=== PATIENT | female | born 1985 | race Caucasian/White ===

== ENCOUNTER 2017-02-08 23:47 | Emergency (ER) | payer BC ==
[2017-02-08] MEDS ORDERED: BABY ASPIRIN 81 MG CHEW PO ONE (23:54)
[2017-02-08] MEDS ORDERED: MORPHINE SULFATE 2 MG INJ IV ONE (23:54)
[2017-02-08] MEDS ORDERED: Sodium Chloride 0.9% 1000 ML 1,000 ML IV STA (23:54)
[2017-02-09 00:03] VITALS: O2SAT 100
[2017-02-09] MEDS ORDERED: Zofran 4 MG/2 ML VIAL ONE (00:12)
[2017-02-09] MEDS ORDERED: BABY ASPIRIN 81 MG CHEW ONE (00:12)
[2017-02-09] MEDS ORDERED: MORPHINE SULFATE 4 MG INJ ONE (00:12)
[2017-02-09] MEDS ORDERED: Sodium Chloride 0.9% 1000 ML 1,000 ML ONE (00:13)
[2017-02-09 00:16] LABS: Mean Corpuscular Hemoglobin 25.9 pg (26-32); Mean Platelet Volume 10.8 fl (6-9.5); Platelet Count 128 K/mm3 (150-450); Red Blood Count 4.36 M/mm3 (4.1-5.4); Red Cell Distribution Width 13.7 % (11.5-14.0); White Blood Count 2.8 K/mm3 (4.0-10.5)
[2017-02-09] MEDS ORDERED: Zofran 4 MG/2 ML VIAL IV ONE (00:22)
[2017-02-09] MEDS ORDERED: MORPHINE SULFATE 2 MG INJ ONE (00:26)
[2017-02-09 00:39] LABS: ATYPICAL LYMPHS 2 %; BAND 6 % (0.0-2.0); Eosinophil 1 % (0.00-3.0); Platelet Estimate NORMAL (NORMAL); Total Cells Counted 100
[2017-02-09 00:40] LABS: ALBUMIN 4.1 g/dL (3.4-5.0); ALKALINE PHOSPHATASE 74 U/L (46-116); ANION GAP 13.8 MEQ/L (5-15); BLOOD UREA NITROGEN 9 mg/dL (9-20); CHLORIDE 105 mEq/L (98-107); Carbon Dioxide 26.4 mEq/L (21-32); Glucose 77 MG/DL (70-110); Potassium 3.3 mEq/L (3.5-5.1); SGOT/AST 14 U/L (15-37); SGPT/ALT 13 U/L (12-78); SODIUM 142 mEq/L (136-145); TROPONIN < 0.017 ng/ml (0.000-0.056); Total Protein 7.5 gm/dL (6.4-8.2)
[2017-02-09] MEDS ORDERED: K-LYTE 25 MEQ PO ONE (00:44)
--- NOTE | 2017-02-09 00:44 | ERPHSYRPT ---
- History of Present Illness Time Seen by Provider: 02/09/17 00:41 Historian: patient Exam Limitations: no limitations Patient Subjective Stated Complaint: pt state she began having pain in her back and sharp pains in her chest last night. states she has been feeling short af breath also. Triage Nursing Assessment: pt alert and oriented, answers qeustions approp. skin pink warm and dry. respriations nonlabored with lungs cta. pt ambulatory with steady gait noted. pt sinus tach on monitor. Physician History: pt state she began having pain in her back and sharp pains in her chest last night. states she has been feeling short af breath also. Hurts with deep breathing Timing/Duration: yesterday Activities at Onset: none Quality: stabbing Location: substernal Chest Pain Radiation: back Severity of Pain-Max: moderate Severity of Pain-Current: moderate Modifying Factors: Improves With: breathing Associated Symptoms: shortness of breath, hurts to breathe Prior Chest Pain/Cardiac Workup: no prior chest pain Nitro Today/Relief: no nitro taken today Aspirin Treatment Today: no aspirin today Allergies/Adverse Reactions: No Known Drug Allergies Allergy (Verified 02/09/17 00:43) Hx Tetanus, Diphtheria Vaccination/Date Given: No Hx Influenza Vaccination/Date Given: No Hx Pneumococcal Vaccination/Date Given: No Immunizations Up to Date: No - Review of Systems Constitutional: No Fever, No Chills Eyes: No Symptoms Ears, Nose, & Throat: No Symptoms Respiratory: Dyspnea, No Cough Cardiac: Chest Pain, No Edema, No Syncope Abdominal/Gastrointestinal: No Abdominal Pain, No Nausea, No Vomiting, No Diarrhea Genitourinary Symptoms: No Dysuria Musculoskeletal: No Back Pain, No Neck Pain Skin: No Rash Neurological: No Dizziness, No Focal Weakness, No Sensory Changes Psychological: No Symptoms Endocrine: No Symptoms All Other Systems: Reviewed and Negative - Past Medical History Pertinent Past Medical History: No - Past Surgical History Past Surgical History: Yes Gastrointestinal: Hernia Repair Female Surgical History: Section Other Surgical History: GASTRIC BYPASS, - Social History Smoking Status: Never smoker Exposure to second hand smoke: No Drug Use: none Patient Lives Alone: No Significant Family History: no pertinent family hx - Female History Hx Last Menstrual Period: 2 weeks - Nursing Vital Signs Nursing Vital Signs: Initial Vital Signs Temperature 98.6 F 02/08/17 23:52 Pulse Rate 118 H 02/08/17 23:52 Respiratory Rate 20 02/08/17 23:52 Blood Pressure 117/57 02/08/17 23:52 O2 Sat by Pulse Oximetry 100 02/08/17 23:52 Pain Scale Pain Intensity 6 - Physical Exam General Appearance: no apparent distress, alert Eye Exam: PERRL/EOMI, eyes nml inspection Ears, Nose, Throat Exam: normal ENT inspection, moist mucous membranes Neck Exam: normal inspection, non-tender, supple, full range of motion Respiratory Exam: normal breath sounds, lungs clear, No respiratory distress Cardiovascular Exam: regular rate/rhythm, normal heart sounds Gastrointestinal/Abdomen Exam: soft, No tenderness, No mass Back Exam: normal inspection, No CVA tenderness, No vertebral tenderness Extremity Exam: normal inspection, normal range of motion Neurologic Exam: alert, oriented x 3, cooperative, normal mood/affect, sensation nml, No motor deficits Skin Exam: normal color, warm, dry SpO2: 100 Oxygen Delivery: Room Air - Course Nursing assessment & vital signs reviewed: Yes EKG Interpreted by Me: Sinus Rhythm - Radiology Exams Chest X-ray Interpretation: Reviewed by me, Negative, No Pneumothorax Ordered Tests: Active Orders 24 hr Category Date Time Status Applied Behavior Specialist STAT Care 02/08/17 23:54 Active EKG-ER Only STAT Care 02/08/17 23:54 Active CHEST 2 VIEWS (PA AND LAT) Stat Exams 02/08/17 23:55 Taken CBC W DIFF Stat Lab 02/08/17 00:11 Completed CMP Stat Lab 02/08/17 00:11 Completed D-DIMER QUANTITATION Stat Lab 02/08/17 00:11 Completed Manual Differential NC Stat Lab 02/08/17 00:11 Completed TROPONIN Stat Lab 02/08/17 00:11 Completed Medication Summary Generic Name Dose Route Start Last Admin Trade Name Freq PRN Reason Stop Dose Admin Sodium Chloride 1,000 mls @ 999 mls/hr 02/08/17 23:54 02/09/17 00:20 Sodium Chloride 0.9% 1000 Ml IV 02/09/17 00:54 999 mls/hr .Q1H1M STA Administration Discontinued Medications Generic Name Dose Route Start Last Admin Trade Name Freq PRN Reason Stop Dose Admin Aspirin 81 mg 02/08/17 23:54 02/09/17 00:20 Baby Aspirin 81 Mg Chew PO 02/08/17 23:55 81 mg STAT ONE Administration Aspirin Confirm 02/09/17 00:12 Baby Aspirin 81 Mg Chew Administered 02/09/17 00:13 Dose 324 mg .ROUTE .STK-MED ONE Sodium Chloride Confirm 02/09/17 00:13 Sodium Chloride 0.9% 1000 Ml Administered 02/09/17 00:14 Dose 1,000 mls @ ud .ROUTE .STK-MED ONE Morphine Sulfate 2 mg 02/08/17 23:54 02/09/17 00:21 Morphine Sulfate 2 Mg Inj IV 02/08/17 23:55 2 mg STAT ONE Administration Morphine Sulfate Confirm 02/09/17 00:12 Morphine Sulfate 4 Mg Inj Administered 02/09/17 00:13 Dose 4 mg .ROUTE .STK-MED ONE Morphine Sulfate Confirm 02/09/17 00:26 Morphine Sulfate 2 Mg Inj Administered 02/09/17 00:27 Dose 2 mg .ROUTE .STK-MED ONE Ondansetron HCl Confirm 02/09/17 00:12 Zofran 4 Mg/2 Ml Vial Administered 02/09/17 00:13 Dose 4 mg .ROUTE .STK-MED ONE Ondansetron HCl 4 mg 02/09/17 00:22 02/09/17 00:27 Zofran 4 Mg/2 Ml Vial IV 02/09/17 00:23 4 mg STAT ONE Administration Potassium Bicarbonate 50 meq 02/09/17 00:44 K-Lyte 25 Meq PO 02/09/17 00:45 STAT ONE Lab/Rad Data: Laboratory Result Diagrams 02/08/17 00:11 02/08/17 00:11 Laboratory Results 02/08/17 02/08/17 02/08/17 Range/Units 00:11 00:11 00:11 WBC 2.8 L (4.0-10.5) K/mm3 RBC 4.36 (4.1-5.4) M/mm3 Hgb 11.3 L (12.0-16.0) gm/dl Hct 35.3 (35-47) % MCV 81.0 (78-100) fl MCH 25.9 L (26-32) pg MCHC 32.0 (32-36) g/dl RDW 13.7 (11.5-14.0) % Plt Count 128 L (150-450) K/mm3 MPV 10.8 H (6-9.5) fl Segmented Neutrophils 66 (36.0-66.0) % Band Neutrophils 6 H (0.0-2.0) % Lymphocytes (Manual) 20 L (24-44) % Monocytes (Manual) 5 (0.0-12.0) % Eosinophils (Manual) 1 (0.00-3.0) % Differential Comment NORMAL Atypical Lymphocytes 2 % Platelet Estimate NORMAL (NORMAL) D-Dimer 489 (0-500) ng/mL Sodium 142 (136-145) mEq/L Potassium 3.3 L (3.5-5.1) mEq/L Chloride 105 (98-107) mEq/L Carbon Dioxide 26.4 (21-32) mEq/L Anion Gap 13.8 (5-15) MEQ/L BUN 9 (9-20) mg/dL Creatinine 0.79 (0.55-1.30) mg/dl Estimated GFR > 60 ML/MIN Glucose 77 (70-110) MG/DL Calcium 9.1 (8.5-10.1) mg/dL Total Bilirubin 0.20 (0.2-1.0) mg/dL AST 14 L (15-37) U/L ALT 13 (12-78) U/L Alkaline Phosphatase 74 (46-116) U/L Troponin I < 0.017 (0.000-0.056) ng/ml Serum Total Protein 7.5 (6.4-8.2) gm/dL Albumin 4.1 (3.4-5.0) g/dL - Progress Progress: improved Air Movement: good Blood Culture(s) Obtained: No Antibiotics given: No Counseled pt/family regarding: lab results, diagnosis, need for follow-up, rad results - Departure Time of Disposition: 00:47 Departure Disposition: Home Clinical Impression: Pleurisy, Chest pain made worse by breathing Condition: Stable Critical Care Time: Yes Critical Care Time(excluding separately billable procedures): 30-74 minutes Referrals: NOAH SOW FNP [Primary Care Provider] - Instructions: Atypical Chest Pain, Pericarditis, Pleurisy Prescriptions: Indomethacin 25 mg [Indocin 25 MG] 25 mg PO TID #15 capsule
[2017-02-09] MEDS ORDERED: TORAdol 30 mg Injection ONE (00:47)
[2017-02-09] MEDS ORDERED: TORAdol 30 mg Injection IV ONE (00:50)
[2017-02-09] MEDS ORDERED: K-LYTE 25 MEQ ONE (00:50)
[2017-02-09 01:02] VITALS: BP 112/74; PULSE 88
--- NOTE | 2017-02-09 09:16 | XRAY ---
Indication: Chest pain and short of breath. Comparison: April 13, 2008. PA/lateral chest again demonstrates normal heart and lungs. Bony thorax intact with minimal scoliosis.
== END 2017-02-09 01:20 | disposition home or self-care (01) ==
LOC: ED 23:47
DX: R09.1 Pleurisy (principal); R07.1 Chest pain on breathing
CPT/HCPCS: 36415; 71020; 80053; 84484; 85025; 85379; 93005; 93041; 96360; 96374; 96375; 99284; J1885; J2270; J2405; A9270-GY

== ENCOUNTER 2018-01-25 12:25 | Inpatient (IN) | payer BC ==
--- NOTE | 2018-01-25 12:44 | ERPHSYRPT ---
- History of Present Illness Time Seen by Provider: 01/25/18 12:37 Source: patient Exam Limitations: no limitations Physician History: The patient is a 32-year-old female comes in complaining of worsening "dizziness " for 2 days. Yesterday she went to the [facility] and felt a little dizzy yesterday. It was worsened by standing up. She thought maybe she was dehydrated and tried to drink a lot of water. This morning while she was doing someone's hair, she became very lightheaded and felt like she would black out. Her stomach was nauseated, causing her to feel short of breath. She did not vomit. The person for which she was doing hair was a nurse and told her that her heart rate was fast and that she should go to the ER. She has a past medical history of gastric bypass. This morning she felt an urgency to have a bowel movement with some mild cramping. The stool was very black. She no longer has abdominal pain. Her past medical history is significant for genital herpes and gastric bypass. Timing/Duration: yesterday, gradual onset, worse Severity: severe Modifying Factors: Improves With: movement (worse with standing) Associated Symptoms: nausea, abdominal pain (cramping), shortness of breath, No vomiting Allergies/Adverse Reactions: No Known Drug Allergies Allergy (Verified 01/25/18 13:05) Home Medications: Valacyclovir HCl [Valtrex] 500 mg PO DAILY 01/25/18 [History] Hx Tetanus, Diphtheria Vaccination/Date Given: No Hx Influenza Vaccination/Date Given: No Hx Pneumococcal Vaccination/Date Given: No - Review of Systems Constitutional: No Fever, No Chills Eyes: No Symptoms Ears, Nose, & Throat: No Symptoms Respiratory: No Cough, No Dyspnea Cardiac: No Chest Pain, No Edema, No Syncope Abdominal/Gastrointestinal: Nausea, Melena, No Vomiting Genitourinary Symptoms: No Dysuria Musculoskeletal: No Back Pain, No Neck Pain Skin: No Rash Neurological: No Dizziness, No Focal Weakness, No Sensory Changes Psychological: No Symptoms Endocrine: No Symptoms Hematologic/Lymphatic: No Symptoms Immunological/Allergic: No Symptoms All Other Systems: Reviewed and Negative - Past Medical History Pertinent Past Medical History: No - Past Surgical History Past Surgical History: Yes Gastrointestinal: Hernia Repair Female Surgical History: Section Other Surgical History: GASTRIC BYPASS, - Social History Smoking Status: Never smoker Exposure to second hand smoke: No Drug Use: none Patient Lives Alone: No Significant Family History: no pertinent family hx - Nursing Vital Signs Nursing Vital Signs: Initial Vital Signs Temperature 98.6 F 01/25/18 12:27 Pulse Rate 96 H 01/25/18 12:27 Respiratory Rate 16 01/25/18 12:27 Blood Pressure 124/80 01/25/18 12:27 O2 Sat by Pulse Oximetry 99 01/25/18 12:27 Pain Scale Pain Intensity 4 - Physical Exam General Appearance: moderate distress, thin Eye Exam: PERRL/EOMI, eyes nml inspection Ears, Nose, Throat Exam: normal ENT inspection, TMs normal, pharynx normal, moist mucous membranes, No dry mucous membranes Neck Exam: normal inspection, non-tender, supple, full range of motion Respiratory Exam: normal breath sounds, lungs clear, No respiratory distress Cardiovascular Exam: regular rate/rhythm, normal heart sounds, normal peripheral pulses Gastrointestinal/Abdomen Exam: soft, normal bowel sounds, No tenderness, No mass Pelvic Exam: not done Rectal Exam: black stool (per nurse) Back Exam: normal inspection, normal range of motion, No CVA tenderness, No vertebral tenderness Extremity Exam: normal inspection, normal range of motion, pelvis stable Neurologic Exam: alert, oriented x 3, cooperative, normal mood/affect, nml cerebellar function, nml station & gait, sensation nml, No motor deficits Skin Exam: warm, dry, pale, No rash Lymphatic Exam: No adenopathy SpO2 Interpretation: normal Oxygen Delivery: Room Air - Course EKG Interpreted by Me: RATE, Sinus Rhythm, NORMAL AXIS, NORMAL INTERVALS, NORMAL QRS, NORMAL ST-T - CT Exams Abdomen/Pelvis CT Interpretation: Negative (no acute problems), Tele-radiologist Report (per Dr De León.) Ordered Tests: Active Orders 24 hr Category Date Time Status IV Insertion STAT Care 01/25/18 12:49 Active ABDOMEN AND PELVIS W/0 CONTRAS [CT] Stat Exams 01/25/18 13:18 Taken CBC W DIFF Stat Lab 01/25/18 12:52 Completed CMP Stat Lab 01/25/18 12:52 Completed HCG QUALITATIVE,SERUM Stat Lab 01/25/18 12:52 Completed Lactic Acid Stat Lab 01/25/18 13:13 Completed Occult Blood,Stool Other Stat Lab 01/25/18 14:04 Completed UA W/ MICROSCOPIC Stat Lab 01/25/18 14:04 Completed Medication Summary Discontinued Medications Generic Name Dose Route Start Last Admin Trade Name Meaghan PRN Reason Stop Dose Admin Sodium Chloride 1,000 mls @ 999 mls/hr 01/25/18 12:49 01/25/18 14:31 Sodium Chloride 0.9% 1000 Ml IV 01/25/18 13:49 Infused .Q1H1M STA Infusion Sodium Chloride Confirm 01/25/18 12:54 Sodium Chloride 0.9% 1000 Ml Administered 01/25/18 12:55 Dose 1,000 mls @ ud .ROUTE .STK-MED ONE Ondansetron HCl 4 mg 01/25/18 12:49 01/25/18 13:03 Zofran 4 Mg/2 Ml Vial IV 01/25/18 12:50 4 mg STAT ONE Administration Ondansetron HCl Confirm 01/25/18 12:54 Zofran 4 Mg/2 Ml Vial Administered 01/25/18 12:55 Dose 4 mg .ROUTE .STK-MED ONE Pantoprazole Sodium 40 mg 01/25/18 13:12 01/25/18 13:17 Protonix 40 Mg Iv IV 01/25/18 13:13 40 mg STAT ONE Administration Pantoprazole Sodium Confirm 01/25/18 13:15 Protonix 40 Mg Iv Administered 01/25/18 13:16 Dose 40 mg IV .STK-MED ONE Lab/Rad Data: Laboratory Result Diagrams 01/25/18 12:52 01/25/18 12:52 Laboratory Results 01/25/18 01/25/18 01/25/18 Range/Units 14:04 14:04 13:13 WBC (4.0-10.5) K/mm3 RBC (4.1-5.4) M/mm3 Hgb (12.0-16.0) gm/dl Hct (35-47) % MCV (78-100) fl MCH (26-32) pg MCHC (32-36) g/dl RDW (11.5-14.0) % Plt Count (150-450) K/mm3 MPV (6-9.5) fl Gran % (36.0-66.0) % Eos # (Auto) (0-0.5) Absolute Lymphs (auto) (1.0-4.6) Absolute Monos (auto) (0.0-1.3) Lymphocytes % (24.0-44.0) % Monocytes % (0.0-12.0) % Eosinophils % (0.00-5.0) % Basophils % (0.0-0.4) % Absolute Granulocytes (1.4-6.9) Basophils # (0-0.4) Sodium (137-145) mmol/L Potassium (3.5-5.1) mmol/L Chloride (98-107) mmol/L Carbon Dioxide (22-30) mmol/L Anion Gap (5-15) MEQ/L BUN (7-17) mg/dL Creatinine (0.52-1.04) mg/dL Estimated GFR ML/MIN Glucose (74-106) mg/dL Lactic Acid 1.0 (0.4-2.0) Calcium (8.4-10.2) mg/dL Total Bilirubin (0.2-1.3) mg/dL AST (14-36) U/L ALT (0-35) U/L Alkaline Phosphatase (38-126) U/L Serum Total Protein (6.3-8.2) g/dL Albumin (3.5-5.0) g/dL Serum , Qual (Negative) Ur Collection Type VOID Urine Color YELLOW (YELLOW) Urine Appearance CLEAR (CLEAR) Urine pH 5.0 (5-6) Ur Specific [place] 1.015 (1.005-1.025) Urine Protein NEGATIVE (Negative) Urine Ketones NEGATIVE (NEGATIVE) Urine Blood NEGATIVE (0-5) Ludin/ul Urine Nitrite NEGATIVE (NEGATIVE) Urine Bilirubin NEGATIVE (NEGATIVE) Urine Urobilinogen NORMAL (0-1) mg/dL Ur Leukocyte Esterase TRACE (NEGATIVE) Urine Microscopic WBC 0-2 (0-5) /HPF Ur Epithelial Cells RARE (FEW) /HPF Urine Bacteria FEW (NEGATIVE) /HPF Urine Mucus SLIGHT (NEGATIVE) /HPF Urine Culture Reflexed NO (NO) Urine Glucose NEGATIVE (NEGATIVE) mg/dL Stool Occult Blood POSITIVE (Negative) Specimen Received 01/25/18 1400 01/25/18 01/25/18 01/25/18 Range/Units 12:52 12:52 12:52 WBC 6.0 (4.0-10.5) K/mm3 RBC 3.09 L (4.1-5.4) M/mm3 Hgb 7.6 L (12.0-16.0) gm/dl Hct 24.1 L (35-47) % MCV 78.0 (78-100) fl MCH 24.5 L (26-32) pg MCHC 31.5 L (32-36) g/dl RDW 14.5 H (11.5-14.0) % Plt Count 190 (150-450) K/mm3 MPV 11.0 H (6-9.5) fl Gran % 63.6 (36.0-66.0) % Eos # (Auto) 0.08 (0-0.5) Absolute Lymphs (auto) 1.51 (1.0-4.6) Absolute Monos (auto) 0.59 (0.0-1.3) Lymphocytes % 25.0 (24.0-44.0) % Monocytes % 9.8 (0.0-12.0) % Eosinophils % 1.3 (0.00-5.0) % Basophils % 0.3 (0.0-0.4) % Absolute Granulocytes 3.83 (1.4-6.9) Basophils # 0.02 (0-0.4) Sodium 139 (137-145) mmol/L Potassium 4.0 (3.5-5.1) mmol/L Chloride 108 H (98-107) mmol/L Carbon Dioxide 22 (22-30) mmol/L Anion Gap 13.3 (5-15) MEQ/L BUN 26 H (7-17) mg/dL Creatinine 0.69 (0.52-1.04) mg/dL Estimated GFR > 60.0 ML/MIN Glucose 62 L (74-106) mg/dL Lactic Acid (0.4-2.0) Calcium 9.1 (8.4-10.2) mg/dL Total Bilirubin 0.20 (0.2-1.3) mg/dL AST 10 L (14-36) U/L ALT 7 (0-35) U/L Alkaline Phosphatase 43 (38-126) U/L Serum Total Protein 6.6 (6.3-8.2) g/dL Albumin 4.1 (3.5-5.0) g/dL Serum , Qual NEGATIVE (Negative) Ur Collection Type Urine Color (YELLOW) Urine Appearance (CLEAR) Urine pH (5-6) Ur Specific Hondo (1.005-1.025) Urine Protein (Negative) Urine Ketones (NEGATIVE) Urine Blood (0-5) Ludin/ul Urine Nitrite (NEGATIVE) Urine Bilirubin (NEGATIVE) Urine Urobilinogen (0-1) mg/dL Ur Leukocyte Esterase (NEGATIVE) Urine Microscopic WBC (0-5) /HPF Ur Epithelial Cells (FEW) /HPF Urine Bacteria (NEGATIVE) /HPF Urine Mucus (NEGATIVE) /HPF Urine Culture Reflexed (NO) Urine Glucose (NEGATIVE) mg/dL Stool Occult Blood (Negative) Specimen Received - Progress Progress: unchanged Counseled pt/family regarding: lab results, diagnosis, rad results - Departure Time of Disposition: 15:16 Departure Disposition: In-patient Admission (per Dr Aida Hernandez for Dr De Santiago) Clinical Impression: GI bleed Condition: Critical Care Time: No Referrals: VIRGIL DE SANTIAGO MD [Primary Care Provider] -
[2018-01-25] MEDS ORDERED: Zofran 4 MG/2 ML VIAL IV ONE (12:49)
[2018-01-25] MEDS ORDERED: Sodium Chloride 0.9% 1000 ML 1,000 ML IV STA (12:49)
[2018-01-25] MEDS ORDERED: Zofran 4 MG/2 ML VIAL ONE (12:54)
[2018-01-25] MEDS ORDERED: Sodium Chloride 0.9% 1000 ML 1,000 ML ONE (12:54)
[2018-01-25 12:56] LABS: BASOPHIL % 0.3 % (0.0-0.4); Basophil (Absolute #) 0.02 (0-0.4); Eosinophil % 1.3 % (0.00-5.0); Eosinophil (Absolute #) 0.08 (0-0.5); Granulocyte Absolute (ANC) 3.83 (1.4-6.9); Granulocytes % 63.6 % (36.0-66.0); Hematocrit 24.1 % (35-47); Hemoglobin 7.6 gm/dl (12.0-16.0); Lymphocyte (Absolute #) 1.51 (1.0-4.6); Mean Corpuscular Hgb Concent. 31.5 g/dl (32-36); Monocyte (Absolute #) 0.59 (0.0-1.3); Monocytes % 9.8 % (0.0-12.0); Platelet Count 190 K/mm3 (150-450); Red Blood Count 3.09 M/mm3 (4.1-5.4); Red Cell Distribution Width 14.5 % (11.5-14.0)
[2018-01-25 12:58] LABS: Mean Corpuscular Hemoglobin 24.5 pg (26-32)
[2018-01-25 13:11] LABS: ALBUMIN 4.1 g/dL (3.5-5.0); ALKALINE PHOSPHATASE 43 U/L (38-126); ANION GAP 13.3 MEQ/L (5-15); BLOOD UREA NITROGEN 26 mg/dL (7-17); CHLORIDE 108 mmol/L (98-107); Calcium 9.1 mg/dL (8.4-10.2); Carbon Dioxide 22 mmol/L (22-30); Creatinine 1 0.69 mg/dL (0.52-1.04); Glucose 62 mg/dL (74-106); SGOT/AST 10 U/L (14-36); SGPT/ALT 7 U/L (0-35); SODIUM 139 mmol/L (137-145); Total Protein 6.6 g/dL (6.3-8.2)
[2018-01-25] MEDS ORDERED: PROTONIX 40 MG IV IV ONE ×3 (13:12→16:42)
[2018-01-25 14:10] LABS: Appearance CLEAR (CLEAR); Bilirubin NEGATIVE (NEGATIVE); Blood NEGATIVE Ery/ul (0-5); Glucose NEGATIVE (NEGATIVE); Ketones NEGATIVE (NEGATIVE); Leukocyte Esterase TRACE (NEGATIVE); Nitrite NEGATIVE (NEGATIVE); Protein,Urine Dip NEGATIVE (Negative); Specific Gravity 1.015 (1.005-1.025); Urobilinogen NORMAL mg/dL (0-1)
[2018-01-25 15:01] LABS: Bacteria FEW /HPF (NEGATIVE); Epithelial Cells RARE /HPF (FEW); Mucus SLIGHT /HPF (NEGATIVE); WBC 0-2 /HPF (0-5)
[2018-01-25] MEDS ORDERED: Zofran 4 MG/2 ML VIAL IV PRN (15:50)
[2018-01-25] MEDS ORDERED: Sodium Chloride 0.9% 1000 ML 1,000 ML IV SCH (15:50)
[2018-01-25 16:03] LABS: ABO TYPING A; RH TYPING NEGATIVE
[2018-01-25] MEDS ORDERED: THIAMINE 200 MG/2 ML IV ONE (16:42)
--- NOTE | 2018-01-25 16:42 | PCM.HP ---
History of Present Illness - Chief Complaint Chief Complaint: GI Bleed Date: 01/25/18 History of Present Illness: is a 32 year old female. with history of gastric bypass who usually does not take her protonix or her iron because she forgets and 2 nights ago woke up with some cramping diffusely in her abdomen then yesterday began feeling weak and tired and [place] had to sit down. She noticed a darker stool yesterday X1 and then this morning she was feeling tired and around 11 am had a large black bowel movement and felt like she was going to pass out. She has no abdominal pain today and has not had any nsaids. She feels better after the normal saline bolus. - Review of Systems Constitutional: No Fever, No Chills Eyes: No Symptoms Ears, Nose, & Throat: No Symptoms Respiratory: No Cough, No Short Of Breath Cardiac: No Chest Pain, No Edema, No Syncope Abdominal/Gastrointestinal: Nausea, Melena, No Abdominal Pain, No Vomiting, No Diarrhea Genitourinary Symptoms: No Dysuria Musculoskeletal: No Back Pain, No Neck Pain Skin: No Rash Neurological: No Dizziness, No Focal Weakness, No Sensory Changes Psychological: No Symptoms Endocrine: No Symptoms Hematologic/Lymphatic: No Symptoms Immunological/Allergic: No Symptoms Medications & Allergies Home Medications: Home Medication List Valacyclovir HCl [Valtrex] 500 mg PO DAILY 01/25/18 [History Confirmed 01/25/18] Zolpidem Tartrate 10 mg [Ambien 10 MG] 10 mg PO HS 01/25/18 [History Confirmed 01/25/18] Allergies/Adverse Reactions: Allergies Allergy/AdvReac Type Severity Reaction Status Date / Time No Known Drug Allergies Allergy Verified 01/25/18 13:05 - Past Medical History Past Medical History: No - Female History Hx Last Menstrual Period: 12/25/17 Are you now?: No (ABLASION) - Past Surgical History Past Surgical History: Yes GI Surgical History: Hernia Repair Female Surgical History: Section Other Surgical History: GASTRIC BYPASS, - Social History Smoking Status: Never smoker Exposure to second hand smoke: No Alcohol: None Drug Use: none Significant Family History: no pertinent family hx - Physical Exam Vital Signs: Vital Signs - 24 hr Temp Pulse Resp BP Pulse Ox 01/25/18 14:49 95 H 14 106/68 100 07/15/18 13:22 89 20 111/72 100 01/25/18 12:27 98.6 F 96 H 16 124/80 99 General Appearance: no apparent distress, alert Neurologic Exam: alert, oriented x 3, cooperative, normal mood/affect, nml cerebellar function, nml station & gait, sensation nml, No motor deficits Eye Exam: PERRL/EOMI, eyes nml inspection Ears, Nose, Throat Exam: normal ENT inspection, TMs normal, pharynx normal, moist mucous membranes Neck Exam: normal inspection, non-tender, supple, full range of motion Respiratory Exam: normal breath sounds, lungs clear, No respiratory distress Cardiovascular Exam: regular rate/rhythm, normal heart sounds, normal peripheral pulses Gastrointestinal/Abdomen Exam: soft, normal bowel sounds, No tenderness, No mass Back Exam: normal inspection, normal range of motion, No CVA tenderness, No vertebral tenderness Extremity Exam: normal inspection, normal range of motion, pelvis stable Skin Exam: normal color, warm, dry, No rash Lymphatic Exam: No adenopathy Results - Labs Lab/Micro Results: Lab Results-Last 24 Hours 01/25/18 01/25/18 01/25/18 Range/Units 12:52 12:52 12:52 WBC 6.0 (4.0-10.5) K/mm3 RBC 3.09 L (4.1-5.4) M/mm3 Hgb 7.6 L (12.0-16.0) gm/dl Hct 24.1 L (35-47) % MCV 78.0 (78-100) fl MCH 24.5 L (26-32) pg MCHC 31.5 L (32-36) g/dl RDW 14.5 H (11.5-14.0) % Plt Count 190 (150-450) K/mm3 MPV 11.0 H (6-9.5) fl Gran % 63.6 (36.0-66.0) % Eos # (Auto) 0.08 (0-0.5) Absolute Lymphs (auto) 1.51 (1.0-4.6) Absolute Monos (auto) 0.59 (0.0-1.3) Lymphocytes % 25.0 (24.0-44.0) % Monocytes % 9.8 (0.0-12.0) % Eosinophils % 1.3 (0.00-5.0) % Basophils % 0.3 (0.0-0.4) % Absolute Granulocytes 3.83 (1.4-6.9) Basophils # 0.02 (0-0.4) Sodium 139 (137-145) mmol/L Potassium 4.0 (3.5-5.1) mmol/L Chloride 108 H (98-107) mmol/L Carbon Dioxide 22 (22-30) mmol/L Anion Gap 13.3 (5-15) MEQ/L BUN 26 H (7-17) mg/dL Creatinine 0.69 (0.52-1.04) mg/dL Estimated GFR > 60.0 ML/MIN Glucose 62 L (74-106) mg/dL Lactic Acid (0.4-2.0) Calcium 9.1 (8.4-10.2) mg/dL Total Bilirubin 0.20 (0.2-1.3) mg/dL AST 10 L (14-36) U/L ALT 7 (0-35) U/L Alkaline Phosphatase 43 (38-126) U/L Serum Total Protein 6.6 (6.3-8.2) g/dL Albumin 4.1 (3.5-5.0) g/dL Serum , Qual NEGATIVE (Negative) Ur Collection Type Urine Color (YELLOW) Urine Appearance (CLEAR) Urine pH (5-6) Ur Specific [place] (1.005-1.025) Urine Protein (Negative) Urine Ketones (NEGATIVE) Urine Blood (0-5) Ludin/ul Urine Nitrite (NEGATIVE) Urine Bilirubin (NEGATIVE) Urine Urobilinogen (0-1) mg/dL Ur Leukocyte Esterase (NEGATIVE) Urine Microscopic WBC (0-5) /HPF Ur Epithelial Cells (FEW) /HPF Urine Bacteria (NEGATIVE) /HPF Urine Mucus (NEGATIVE) /HPF Urine Culture Reflexed (NO) Urine Glucose (NEGATIVE) mg/dL Stool Occult Blood (Negative) Specimen Received ABO Group Rh Factor Antibody Screen (NEGATIVE) Crossmatch 01/25/18 01/25/18 01/25/18 Range/Units 13:13 14:04 14:04 WBC (4.0-10.5) K/mm3 RBC (4.1-5.4) M/mm3 Hgb (12.0-16.0) gm/dl Hct (35-47) % MCV (78-100) fl MCH (26-32) pg MCHC (32-36) g/dl RDW (11.5-14.0) % Plt Count (150-450) K/mm3 MPV (6-9.5) fl Gran % (36.0-66.0) % Eos # (Auto) (0-0.5) Absolute Lymphs (auto) (1.0-4.6) Absolute Monos (auto) (0.0-1.3) Lymphocytes % (24.0-44.0) % Monocytes % (0.0-12.0) % Eosinophils % (0.00-5.0) % Basophils % (0.0-0.4) % Absolute Granulocytes (1.4-6.9) Basophils # (0-0.4) Sodium (137-145) mmol/L Potassium (3.5-5.1) mmol/L Chloride (98-107) mmol/L Carbon Dioxide (22-30) mmol/L Anion Gap (5-15) MEQ/L BUN (7-17) mg/dL Creatinine (0.52-1.04) mg/dL Estimated GFR ML/MIN Glucose (74-106) mg/dL Lactic Acid 1.0 (0.4-2.0) Calcium (8.4-10.2) mg/dL Total Bilirubin (0.2-1.3) mg/dL AST (14-36) U/L ALT (0-35) U/L Alkaline Phosphatase (38-126) U/L Serum Total Protein (6.3-8.2) g/dL Albumin (3.5-5.0) g/dL Serum , Qual (Negative) Ur Collection Type VOID Urine Color YELLOW (YELLOW) Urine Appearance CLEAR (CLEAR) Urine pH 5.0 (5-6) Ur Specific [place] 1.015 (1.005-1.025) Urine Protein NEGATIVE (Negative) Urine Ketones NEGATIVE (NEGATIVE) Urine Blood NEGATIVE (0-5) Ludin/ul Urine Nitrite NEGATIVE (NEGATIVE) Urine Bilirubin NEGATIVE (NEGATIVE) Urine Urobilinogen NORMAL (0-1) mg/dL Ur Leukocyte Esterase TRACE (NEGATIVE) Urine Microscopic WBC 0-2 (0-5) /HPF Ur Epithelial Cells RARE (FEW) /HPF Urine Bacteria FEW (NEGATIVE) /HPF Urine Mucus SLIGHT (NEGATIVE) /HPF Urine Culture Reflexed NO (NO) Urine Glucose NEGATIVE (NEGATIVE) mg/dL Stool Occult Blood POSITIVE (Negative) Specimen Received 01/25/18 1400 ABO Group Rh Factor Antibody Screen (NEGATIVE) Crossmatch 01/25/18 Range/Units 14:50 WBC (4.0-10.5) K/mm3 RBC (4.1-5.4) M/mm3 Hgb (12.0-16.0) gm/dl Hct (35-47) % MCV (78-100) fl MCH (26-32) pg MCHC (32-36) g/dl RDW (11.5-14.0) % Plt Count (150-450) K/mm3 MPV (6-9.5) fl Gran % (36.0-66.0) % Eos # (Auto) (0-0.5) Absolute Lymphs (auto) (1.0-4.6) Absolute Monos (auto) (0.0-1.3) Lymphocytes % (24.0-44.0) % Monocytes % (0.0-12.0) % Eosinophils % (0.00-5.0) % Basophils % (0.0-0.4) % Absolute Granulocytes (1.4-6.9) Basophils # (0-0.4) Sodium (137-145) mmol/L Potassium (3.5-5.1) mmol/L Chloride (98-107) mmol/L Carbon Dioxide (22-30) mmol/L Anion Gap (5-15) MEQ/L BUN (7-17) mg/dL Creatinine (0.52-1.04) mg/dL Estimated GFR ML/MIN Glucose (74-106) mg/dL Lactic Acid (0.4-2.0) Calcium (8.4-10.2) mg/dL Total Bilirubin (0.2-1.3) mg/dL AST (14-36) U/L ALT (0-35) U/L Alkaline Phosphatase (38-126) U/L Serum Total Protein (6.3-8.2) g/dL Albumin (3.5-5.0) g/dL Serum , Qual (Negative) Ur Collection Type Urine Color (YELLOW) Urine Appearance (CLEAR) Urine pH (5-6) Ur Specific [place] (1.005-1.025) Urine Protein (Negative) Urine Ketones (NEGATIVE) Urine Blood (0-5) Ludin/ul Urine Nitrite (NEGATIVE) Urine Bilirubin (NEGATIVE) Urine Urobilinogen (0-1) mg/dL Ur Leukocyte Esterase (NEGATIVE) Urine Microscopic WBC (0-5) /HPF Ur Epithelial Cells (FEW) /HPF Urine Bacteria (NEGATIVE) /HPF Urine Mucus (NEGATIVE) /HPF Urine Culture Reflexed (NO) Urine Glucose (NEGATIVE) mg/dL Stool Occult Blood (Negative) Specimen Received ABO Group A Rh Factor NEGATIVE Antibody Screen POSITIVE (NEGATIVE) Crossmatch Pending - Radiology Impressions Radiology Exams & Impressions: Radiology Procedures Category Date Time Status ABDOMEN AND PELVIS W/0 CONTRAS [CT] Stat Exams 01/25/18 13:18 Taken Assessment/Plan (1) GI bleed Current Visit: Yes Status: Acute Assessment & Plan: She is on telemetry HR in the 90's received NS bolus type and screen has a positive antibody test that has been sent to [facility] received protonix 80mg iv and now gtt npo currently add carafate She had Darryl en Y with [facility] in [address] Chinchilla contact center rep for Dr. Faustin who recommends transfuse her blood give the protonix start carafate as well and her office will call the patient in the morning to arrange endoscopy with them this week. The patient and her were updated on the plan and in agreement. Code(s): K92.2 - GASTROINTESTINAL HEMORRHAGE, UNSPECIFIED (2) Symptomatic anemia Current Visit: Yes Status: Acute Code(s): D64.9 - ANEMIA, UNSPECIFIED (3) History of gastric bypass Current Visit: Yes Status: Acute Code(s): Z98.84 - BARIATRIC SURGERY STATUS
[2018-01-25] MEDS ORDERED: Sodium Chloride 0.9% 500 ML 500 ML IV ONE (17:26)
[2018-01-25 17:47] LABS: Hematocrit 20.7 % (35-47)
[2018-01-25] MEDS: D5W/0.45NS W/ 20mEq KCl 1000 ML 1,000 ML IV SCH (17:52)
[2018-01-25 17:53] LABS: Hemoglobin 6.5 gm/dl (12.0-16.0)
[2018-01-25] MEDS: PROTONIX 40 MG IV*** 80 MG in Sodium Chloride 0.9% 500 ML 500 ML IV SCH ×2 (17:59→18:15)
[2018-01-25] MEDS: TYLENOL 325 MG PO PRN (18:41)
--- NOTE | 2018-01-25 20:30 | XRAY ---
Indication: Abdominal cramping, body ache, weakness, and black stools 2 days. Multiple contiguous axial images obtained through the abdomen and pelvis without contrast as ordered. Comparison: April 17, 2017. Lung bases remain clear. Heart is not enlarged. Again previous gastric bypass surgery. Noncontrasted stomach and bowel loops appear nonobstructed. Normal appendix. No free fluid/air. The remaining liver, gallbladder, pancreas, spleen, adrenal glands, kidneys, ureters, bladder, uterus, and aorta appear unremarkable for noncontrast exam. Osseous structures intact. Impression: Again gastric bypass surgery. Remaining CT abdomen/pelvis without contrast exam is negative. Comment: Preliminary interpretation was made by [facility]. No discrepancy. CTDI 16.62
[2018-01-25] MEDS: Ambien 5 MG Tablet PO SCH (22:48)
[2018-01-25] MEDS: Carafate 1 GM PO SCH (22:48)
[2018-01-26 00:07] LABS: Antibody Screen POSITIVE (NEGATIVE)
[2018-01-26] MEDS: Sodium Chloride 0.9% 1000 ML 1,000 ML IV SCH ×2 (00:25→11:58)
[2018-01-26] MEDS: TYLENOL 325 MG PO PRN (00:55)
[2018-01-26 06:17] LABS: BASOPHIL % 0.7 % (0.0-0.4); Basophil (Absolute #) 0.03 (0-0.4); Eosinophil % 2.2 % (0.00-5.0); Eosinophil (Absolute #) 0.09 (0-0.5); Granulocyte Absolute (ANC) 1.83 (1.4-6.9); Granulocytes % 45.2 % (36.0-66.0); Hemoglobin 7.6 gm/dl (12.0-16.0); Lymphocyte (Absolute #) 1.74 (1.0-4.6); Mean Cell Volume 78.9 fl (78-100); Mean Corpuscular Hgb Concent. 31.7 g/dl (32-36); Mean Platelet Volume 10.9 fl (6-9.5); Monocyte (Absolute #) 0.36 (0.0-1.3); Monocytes % 8.9 % (0.0-12.0); Platelet Count 135 K/mm3 (150-450); Red Blood Count 3.04 M/mm3 (4.1-5.4); Red Cell Distribution Width 14.7 % (11.5-14.0); White Blood Count 4.1 K/mm3 (4.0-10.5)
[2018-01-26 06:44] LABS: ANION GAP 9.3 MEQ/L (5-15); BLOOD UREA NITROGEN 11 mg/dL (7-17); CHLORIDE 110 mmol/L (98-107); Calcium 8.2 mg/dL (8.4-10.2); Carbon Dioxide 22 mmol/L (22-30); Glucose 96 mg/dL (74-106); Potassium 3.8 mmol/L (3.5-5.1); SODIUM 138 mmol/L (137-145)
[2018-01-26] MEDS ORDERED: NORCO 5/325 MG PO PRN (07:54)
--- NOTE | 2018-01-26 07:58 | PCM.NOTE ---
Date and Time: 01/26/18 0756 Subjective Assessment: patient c/o headache today. no abd pain, no stools or vomiting since admission. overall feeling better other than headache. Objective Exam General Appearance: no apparent distress, alert Skin Exam: normal color, warm, dry Respiratory Exam: normal breath sounds, lungs clear, No respiratory distress Cardiovascular Exam: regular rate/rhythm, normal heart sounds Gastrointestinal/Abdomen Exam: soft, No tenderness, No mass Extremity Exam: normal inspection, normal range of motion OBJECTIVE DATA Vital Signs: Vital Signs - 24 hr Temp Pulse Resp BP Pulse Ox 01/26/18 07:28 98.4 F 83 18 102/59 98 01/26/18 05:52 98.2 F 83 17 105/60 98 01/26/18 02:00 98.1 F 92 H 18 95/58 95 01/25/18 23:36 97.7 F 83 16 106/61 99 01/25/18 20:00 98.3 F 93 H 16 93/54 97 01/25/18 18:00 98.3 F 93 H 16 93/54 97 01/25/18 16:34 98.6 F 95 H 16 106/68 01/25/18 16:00 95 01/25/18 14:49 95 H 14 106/68 100 01/25/18 13:22 89 20 111/72 100 01/25/18 12:27 98.6 F 96 H 16 124/80 99 Pain Assessment - Last Documented Pain Intensity 0 [facility]ake and Output: Intake & Output 01/23/18 01/24/18 01/25/18 01/26/18 11:59 11:59 11:59 11:59 Intake Total 1713 Output Total 1000 Balance 713 Weight 58.967 kg Lab Results: Lab Results-Last 24 Hours 01/25/18 01/25/18 01/25/18 Range/Units 12:52 12:52 12:52 WBC 6.0 (4.0-10.5) K/mm3 RBC 3.09 L (4.1-5.4) M/mm3 Hgb 7.6 L (12.0-16.0) gm/dl Hct 24.1 L (35-47) % MCV 78.0 (78-100) fl MCH 24.5 L (26-32) pg MCHC 31.5 L (32-36) g/dl RDW 14.5 H (11.5-14.0) % Plt Count 190 (150-450) K/mm3 MPV 11.0 H (6-9.5) fl Gran % 63.6 (36.0-66.0) % Eos # (Auto) 0.08 (0-0.5) Absolute Lymphs (auto) 1.51 (1.0-4.6) Absolute Monos (auto) 0.59 (0.0-1.3) Lymphocytes % 25.0 (24.0-44.0) % Monocytes % 9.8 (0.0-12.0) % Eosinophils % 1.3 (0.00-5.0) % Basophils % 0.3 (0.0-0.4) % Absolute Granulocytes 3.83 (1.4-6.9) Basophils # 0.02 (0-0.4) Sodium 139 (137-145) mmol/L Potassium 4.0 (3.5-5.1) mmol/L Chloride 108 H (98-107) mmol/L Carbon Dioxide 22 (22-30) mmol/L Anion Gap 13.3 (5-15) MEQ/L BUN 26 H (7-17) mg/dL Creatinine 0.69 (0.52-1.04) mg/dL Estimated GFR > 60.0 ML/MIN Glucose 62 L (74-106) mg/dL Lactic Acid (0.4-2.0) Calcium 9.1 (8.4-10.2) mg/dL Total Bilirubin 0.20 (0.2-1.3) mg/dL AST 10 L (14-36) U/L ALT 7 (0-35) U/L Alkaline Phosphatase 43 (38-126) U/L Serum Total Protein 6.6 (6.3-8.2) g/dL Albumin 4.1 (3.5-5.0) g/dL Serum , Qual NEGATIVE (Negative) Ur Collection Type Urine Color (YELLOW) Urine Appearance (CLEAR) Urine pH (5-6) Ur Specific [place] (1.005-1.025) Urine Protein (Negative) Urine Ketones (NEGATIVE) Urine Blood (0-5) Ludin/ul Urine Nitrite (NEGATIVE) Urine Bilirubin (NEGATIVE) Urine Urobilinogen (0-1) mg/dL Ur Leukocyte Esterase (NEGATIVE) Urine Microscopic WBC (0-5) /HPF Ur Epithelial Cells (FEW) /HPF Urine Bacteria (NEGATIVE) /HPF Urine Mucus (NEGATIVE) /HPF Urine Culture Reflexed (NO) Urine Glucose (NEGATIVE) mg/dL Stool Occult Blood (Negative) Specimen Received ABO Group Rh Factor Antibody Screen (NEGATIVE) Crossmatch (COMPATIBLE) 01/25/18 01/25/18 01/25/18 Range/Units 13:13 14:04 14:04 WBC (4.0-10.5) K/mm3 RBC (4.1-5.4) M/mm3 Hgb (12.0-16.0) gm/dl Hct (35-47) % MCV (78-100) fl MCH (26-32) pg MCHC (32-36) g/dl RDW (11.5-14.0) % Plt Count (150-450) K/mm3 MPV (6-9.5) fl Gran % (36.0-66.0) % Eos # (Auto) (0-0.5) Absolute Lymphs (auto) (1.0-4.6) Absolute Monos (auto) (0.0-1.3) Lymphocytes % (24.0-44.0) % Monocytes % (0.0-12.0) % Eosinophils % (0.00-5.0) % Basophils % (0.0-0.4) % Absolute Granulocytes (1.4-6.9) Basophils # (0-0.4) Sodium (137-145) mmol/L Potassium (3.5-5.1) mmol/L Chloride (98-107) mmol/L Carbon Dioxide (22-30) mmol/L Anion Gap (5-15) MEQ/L BUN (7-17) mg/dL Creatinine (0.52-1.04) mg/dL Estimated GFR ML/MIN Glucose (74-106) mg/dL Lactic Acid 1.0 (0.4-2.0) Calcium (8.4-10.2) mg/dL Total Bilirubin (0.2-1.3) mg/dL AST (14-36) U/L ALT (0-35) U/L Alkaline Phosphatase (38-126) U/L Serum Total Protein (6.3-8.2) g/dL Albumin (3.5-5.0) g/dL Serum , Qual (Negative) Ur Collection Type VOID Urine Color YELLOW (YELLOW) Urine Appearance CLEAR (CLEAR) Urine pH 5.0 (5-6) Ur Specific [place] 1.015 (1.005-1.025) Urine Protein NEGATIVE (Negative) Urine Ketones NEGATIVE (NEGATIVE) Urine Blood NEGATIVE (0-5) Ludin/ul Urine Nitrite NEGATIVE (NEGATIVE) Urine Bilirubin NEGATIVE (NEGATIVE) Urine Urobilinogen NORMAL (0-1) mg/dL Ur Leukocyte Esterase TRACE (NEGATIVE) Urine Microscopic WBC 0-2 (0-5) /HPF Ur Epithelial Cells RARE (FEW) /HPF Urine Bacteria FEW (NEGATIVE) /HPF Urine Mucus SLIGHT (NEGATIVE) /HPF Urine Culture Reflexed NO (NO) Urine Glucose NEGATIVE (NEGATIVE) mg/dL Stool Occult Blood POSITIVE (Negative) Specimen Received 01/25/18 1400 ABO Group Rh Factor Antibody Screen (NEGATIVE) Crossmatch (COMPATIBLE) 01/25/18 01/25/18 01/25/18 Range/Units 14:50 14:50 17:44 WBC (4.0-10.5) K/mm3 RBC (4.1-5.4) M/mm3 Hgb 6.5 L* (12.0-16.0) gm/dl Hct 20.7 L (35-47) % MCV (78-100) fl MCH (26-32) pg MCHC (32-36) g/dl RDW (11.5-14.0) % Plt Count (150-450) K/mm3 MPV (6-9.5) fl Gran % (36.0-66.0) % Eos # (Auto) (0-0.5) Absolute Lymphs (auto) (1.0-4.6) Absolute Monos (auto) (0.0-1.3) Lymphocytes % (24.0-44.0) % Monocytes % (0.0-12.0) % Eosinophils % (0.00-5.0) % Basophils % (0.0-0.4) % Absolute Granulocytes (1.4-6.9) Basophils # (0-0.4) Sodium (137-145) mmol/L Potassium (3.5-5.1) mmol/L Chloride (98-107) mmol/L Carbon Dioxide (22-30) mmol/L Anion Gap (5-15) MEQ/L BUN (7-17) mg/dL Creatinine (0.52-1.04) mg/dL Estimated GFR ML/MIN Glucose (74-106) mg/dL Lactic Acid (0.4-2.0) Calcium (8.4-10.2) mg/dL Total Bilirubin (0.2-1.3) mg/dL AST (14-36) U/L ALT (0-35) U/L Alkaline Phosphatase (38-126) U/L Serum Total Protein (6.3-8.2) g/dL Albumin (3.5-5.0) g/dL Serum , Qual (Negative) Ur Collection Type Urine Color (YELLOW) Urine Appearance (CLEAR) Urine pH (5-6) Ur Specific [place] (1.005-1.025) Urine Protein (Negative) Urine Ketones (NEGATIVE) Urine Blood (0-5) Ludin/ul Urine Nitrite (NEGATIVE) Urine Bilirubin (NEGATIVE) Urine Urobilinogen (0-1) mg/dL Ur Leukocyte Esterase (NEGATIVE) Urine Microscopic WBC (0-5) /HPF Ur Epithelial Cells (FEW) /HPF Urine Bacteria (NEGATIVE) /HPF Urine Mucus (NEGATIVE) /HPF Urine Culture Reflexed (NO) Urine Glucose (NEGATIVE) mg/dL Stool Occult Blood (Negative) Specimen Received ABO Group A Rh Factor NEGATIVE Antibody Screen POSITIVE (NEGATIVE) Crossmatch COMPATIBLE COMPATIBLE (COMPATIBLE) 01/26/18 01/26/18 Range/Units 06:08 06:08 WBC 4.1 (4.0-10.5) K/mm3 RBC 3.04 L (4.1-5.4) M/mm3 Hgb 7.6 L (12.0-16.0) gm/dl Hct 24.0 L (35-47) % MCV 78.9 (78-100) fl MCH 25.0 L (26-32) pg MCHC 31.7 L (32-36) g/dl RDW 14.7 H (11.5-14.0) % Plt Count 135 L (150-450) K/mm3 MPV 10.9 H (6-9.5) fl Gran % 45.2 (36.0-66.0) % Eos # (Auto) 0.09 (0-0.5) Absolute Lymphs (auto) 1.74 (1.0-4.6) Absolute Monos (auto) 0.36 (0.0-1.3) Lymphocytes % 43.0 (24.0-44.0) % Monocytes % 8.9 (0.0-12.0) % Eosinophils % 2.2 (0.00-5.0) % Basophils % 0.7 (0.0-0.4) % Absolute Granulocytes 1.83 (1.4-6.9) Basophils # 0.03 (0-0.4) Sodium 138 (137-145) mmol/L Potassium 3.8 (3.5-5.1) mmol/L Chloride 110 H (98-107) mmol/L Carbon Dioxide 22 (22-30) mmol/L Anion Gap 9.3 (5-15) MEQ/L BUN 11 (7-17) mg/dL Creatinine 0.60 (0.52-1.04) mg/dL Estimated GFR > 60.0 ML/MIN Glucose 96 (74-106) mg/dL Lactic Acid (0.4-2.0) Calcium 8.2 L (8.4-10.2) mg/dL Total Bilirubin (0.2-1.3) mg/dL AST (14-36) U/L ALT (0-35) U/L Alkaline Phosphatase (38-126) U/L Serum Total Protein (6.3-8.2) g/dL Albumin (3.5-5.0) g/dL Serum , Qual (Negative) Ur Collection Type Urine Color (YELLOW) Urine Appearance (CLEAR) Urine pH (5-6) Ur Specific [place] (1.005-1.025) Urine Protein (Negative) Urine Ketones (NEGATIVE) Urine Blood (0-5) Ludin/ul Urine Nitrite (NEGATIVE) Urine Bilirubin (NEGATIVE) Urine Urobilinogen (0-1) mg/dL Ur Leukocyte Esterase (NEGATIVE) Urine Microscopic WBC (0-5) /HPF Ur Epithelial Cells (FEW) /HPF Urine Bacteria (NEGATIVE) /HPF Urine Mucus (NEGATIVE) /HPF Urine Culture Reflexed (NO) Urine Glucose (NEGATIVE) mg/dL Stool Occult Blood (Negative) Specimen Received ABO Group Rh Factor Antibody Screen (NEGATIVE) Crossmatch (COMPATIBLE) Radiology Exams: Radiology Procedures Category Date Time Status ABDOMEN AND PELVIS W/0 CONTRAS [CT] Stat Exams 01/25/18 13:18 Completed Assessment/Plan (1) GI bleed Current Visit: Yes Status: Acute Assessment & Plan: continue protonix drip, keep npo. will continue gtt x 48 hours then d/c and give IV protonix with clear liquid diet Code(s): K92.2 - GASTROINTESTINAL HEMORRHAGE, UNSPECIFIED (2) Symptomatic anemia Current Visit: Yes Status: Acute Code(s): D64.9 - ANEMIA, UNSPECIFIED
[2018-01-26] MEDS: Carafate 1 GM PO SCH ×5 (08:13→22:38)
[2018-01-26] MEDS: ZOVIRAX 800 MG PO SCH (08:14)
[2018-01-26] MEDS: D5W/0.45NS W/ 20mEq KCl 1000 ML 1,000 ML IV SCH ×2 (08:20→23:35)
[2018-01-26] MEDS: PROTONIX 40 MG IV*** 80 MG in Sodium Chloride 0.9% 500 ML 500 ML IV SCH (09:08)
[2018-01-26] MEDS ORDERED: VALACYCLOVIR HCL 500 MG PO SCH (10:00)
[2018-01-26] MEDS ORDERED: PROTONIX 40 MG IV IV SCH (10:00)
[2018-01-26] MEDS ORDERED: MORPHINE SULFATE 4 MG INJ IV PRN (10:17)
[2018-01-26] MEDS ORDERED: Phenergan 25 MG INJ IV PRN (15:55)
[2018-01-26 16:52] LABS: Hematocrit 27.7 % (35-47); Hemoglobin 8.9 gm/dl (12.0-16.0)
[2018-01-26] MEDS: Ambien 5 MG Tablet PO SCH (22:38)
[2018-01-27] MEDS: PROTONIX 40 MG IV*** 80 MG in Sodium Chloride 0.9% 500 ML 500 ML IV SCH (01:06)
[2018-01-27 06:53] VITALS: BP 96/57; PULSE 76; O2SAT 97
[2018-01-27] MEDS: Carafate 1 GM PO SCH (07:56)
--- NOTE | 2018-01-27 08:19 | PCM.DS ---
Discharge Summary Date of Admission: 01/25/18 15:35 Admitting Physician: JESÚS SHINE Primary Care Provider: VIRGIL DE SANTIAGO Allergies Allergies No Known Drug Allergies Allergy (Verified 01/25/18 13:05) Hospital Summary - Hospital Course Hospital Course: patient was admitted with GI bleed, hx gastric bypass. awaiting appt for EGD at bariatric center in [facility]. no more bleeding since admission, no abd pain, no stools. will feed today and if tolerates soft diet to home with plan to f/u with EGD - Vitals & Intake/Output Vital Signs: Vital Signs Temperature 97.8 F 01/27/18 06:52 Pulse Rate 76 01/27/18 06:52 Respiratory Rate 18 01/27/18 06:52 Blood Pressure 96/57 01/27/18 06:52 O2 Sat by Pulse Oximetry 97 01/27/18 06:52 Intake & Output: Intake & Output 01/24/18 01/25/18 01/26/18 01/27/18 11:59 11:59 11:59 11:59 Intake Total 1743 1142 Output Total 1000 3900 Balance 743 -2758 Weight 58.967 kg - Lab Result Diagrams: 01/26/18 16:49 01/26/18 06:08 Lab Results-Last 24 Hrs: Lab Results-Last 24 Hours 01/26/18 01/26/18 Range/Units 14:50 16:49 Hgb 8.9 L (12.0-16.0) gm/dl Hct 27.7 L (35-47) % Crossmatch COMPATIBLE (COMPATIBLE) - Radiology Exams Ordered Rad Exams-Entire Visit: Radiology Procedures Category Date Time Status ABDOMEN AND PELVIS W/0 CONTRAS [CT] Stat Exams 01/25/18 13:18 Completed Discharge Exam General Appearance: no apparent distress, alert Skin Exam: normal color, warm, dry Respiratory Exam: normal breath sounds, lungs clear, No respiratory distress Cardiovascular Exam: regular rate/rhythm, normal heart sounds Gastrointestinal/Abdomen Exam: soft, No tenderness, No mass Extremity Exam: normal inspection, normal range of motion Final Diagnosis/Problem List - Final Discharge Diagnosis/Problem (1) GI bleed Current Visit: Yes Status: Acute Onset Date: ~01/25/18 (2) Symptomatic anemia Current Visit: Yes Status: Acute Onset Date: ~01/25/18 - Discharge Disposition: Home, Self-Care Condition: Prescriptions: No Action Valacyclovir HCl [Valtrex] 500 mg PO DAILY Zolpidem Tartrate 10 mg [Ambien 10 MG] 10 mg PO HS Follow up with: VIRGIL DE SANTIAGO MD [Primary Care Provider] - 02/13/18 10:00 am
[2018-01-27] MEDS: ZOVIRAX 800 MG PO SCH (08:46)
== END 2018-01-27 10:20 | disposition home or self-care (01) | DRG 379 ==
LOC: ED 12:25 → MED SURG 15:35
PROVIDERS: ADMIT Family Medicine; ATTEND Family Medicine
DX: K92.2 Gastrointestinal hemorrhage, unspecified (principal); D64.9 Anemia, unspecified; Z98.84 Bariatric surgery status
CPT/HCPCS: 36000; 36415; 36430; 74176; 80048; 80053; 81000; 82272; 83605; 84703; 85014; 85018; 85025; 86850; 86870; 86900; 86901; 86922; 96360; 96374; 96375; 99285; J2270; J2405; J2550; P9016; A9270-GY

== ENCOUNTER → 2018-01-25 | Emergency (ER) | payer BC | LOC: ED 12:24 ==

== ENCOUNTER 2020-01-28 20:30 | Emergency (ER) | payer BC ==
[2020-01-28] MEDS ORDERED: TORAdol 30 mg Injection IM ONE (20:38)
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
[2020-01-28 20:40] VITALS: O2SAT 98
[2020-01-28] MEDS ORDERED: TORAdol 30 mg Injection ONE (20:40)
[2020-01-28] MEDS ORDERED: SUBLIMAZE 100 MCG/2 ML IV ONE (21:09)
[2020-01-28] MEDS ORDERED: SUBLIMAZE 100 MCG/2 ML ONE (21:22)
[2020-01-28] MEDS ORDERED: SUBLIMAZE 100 MCG/2 ML IM ONE (21:26)
[2020-01-28 21:32] VITALS: BP 113/82; PULSE 96
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
== END 2020-01-28 21:37 | disposition home or self-care (01) ==
LOC: ED 20:30
DX: S93.601A Unspecified sprain of right foot, initial encounter (principal); V86.59XA Driver of other special all-terrain or other off-road motor vehicle injured in nontraffic accident, initial encounter; Z79.899 Other long term (current) drug therapy
CPT/HCPCS: 73610; 73630; 96372; 99284; J1885; J3010

== ENCOUNTER 2020-05-10 04:41 | Emergency (ER) | payer BC ==
[2020-05-10] MEDS ORDERED: Sodium Chloride 0.9% 1000 ML 1,000 ML ONE (05:09)
[2020-05-10] MEDS ORDERED: Zofran 4 MG/2 ML VIAL ONE (05:09)
[2020-05-10 05:13] LABS: Absolute Neutrophil Ct (ANC) 5.11 (1.4-6.9); BASOPHIL % 0.2 % (0.0-0.4); Basophil (Absolute #) 0.01 (0-0.4); Eosinophil % 0.4 % (0.00-5.0); Eosinophil (Absolute #) 0.02 (0-0.5); Hematocrit 28.9 % (35-47); Hemoglobin 8.6 gm/dl (12.0-16.0); Lymphocyte (Absolute #) 0.39 (1.0-4.6); Lymphocytes % 6.9 % (24.0-44.0); Mean Cell Volume 74.1 fl (78-100); Mean Corpuscular Hemoglobin 22.1 pg (26-32); Mean Corpuscular Hgb Concent. 29.8 g/dl (32-36); Mean Platelet Volume 9.8 fl (7.5-11.0); Monocyte (Absolute #) 0.09 (0.0-1.3); Monocytes % 1.6 % (0.0-12.0); Neutrophil % 90.9 % (36.0-66.0); Platelet Count 182 K/mm3 (150-450); Red Cell Distribution Width 15.6 % (11.5-14.0); White Blood Count 5.6 K/mm3 (4.0-10.5)
[2020-05-10] MEDS ORDERED: Sodium Chloride 0.9% 1000 ML 1,000 ML IV STA ×2 (05:17→06:42)
[2020-05-10] MEDS ORDERED: Zofran 4 MG/2 ML VIAL IV ONE (05:17)
[2020-05-10 05:22] LABS: Appearance SLIGHTLY CLOUDY (CLEAR); Bilirubin NEGATIVE (NEGATIVE); Blood SMALL Ery/ul (0-5); Epithelial Cells RARE /HPF (FEW); Glucose NEGATIVE (NEGATIVE); Ketones NEGATIVE (NEGATIVE); Leukocyte Esterase SMALL (NEGATIVE); Mucus SLIGHT /HPF (NEGATIVE); Nitrite NEGATIVE (NEGATIVE); Protein,Urine Dip NEGATIVE (Negative); Specific Gravity 1.012 (1.005-1.025); Urobilinogen NEGATIVE mg/dL (0-1); WBC 51-100 /HPF (0-5)
[2020-05-10 05:24] LABS: ALBUMIN 4.1 g/dL (3.5-5.0); ALKALINE PHOSPHATASE 61 U/L (38-126); AMYLASE 69 U/L (30-110); ANION GAP 12.3 MEQ/L (5-15); BLOOD UREA NITROGEN 8 mg/dL (7-17); CHLORIDE 103 mmol/L (98-107); Carbon Dioxide 20 mmol/L (22-30); Creatinine 1 0.57 mg/dL (0.52-1.04); EST GLOMERULAR FILTRATION RATE > 60.0 ML/MIN; Glucose 129 mg/dL (74-106); LIPASE 75 U/L (23-300); Potassium 3.6 mmol/L (3.5-5.1); SGOT/AST 18 U/L (14-36); SGPT/ALT 10 U/L (0-35); SODIUM 132 mmol/L (137-145)
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
[2020-05-10 05:30] LABS: Amphetamine,Urine NEGATIVE (NEGATIVE); Barbiturate,Urine NEGATIVE (NEGATIVE); Benzodiazepine,Urine NEGATIVE (NEGATIVE); Cocaine,Urine NEGATIVE (NEGATIVE); Methadone,Urine NEGATIVE (NEGATIVE); Opiate,Urine NEGATIVE (NEGATIVE); PCP,Urine NEGATIVE (NEGATIVE); THC,Urine NEGATIVE (NEGATIVE)
[2020-05-10] MEDS ORDERED: TORAdol 30 mg Injection ONE (05:39)
[2020-05-10] MEDS ORDERED: TORAdol 30 mg Injection IV ONE (05:39)
[2020-05-10] MEDS ORDERED: ROCEPHIN 1 Gm-D5w 50 ml Bag** 1 G/50 ML IVPB IV ONE (06:42)
[2020-05-10] MEDS ORDERED: ROCEPHIN 1 Gm-D5w 50 ml Bag** 1 G/50 ML IVPB IV STA (06:42)
[2020-05-10] MEDS ORDERED: SUBLIMAZE 100 MCG/2 ML IV ONE (06:45)
[2020-05-10] MEDS ORDERED: SUBLIMAZE 100 MCG/2 ML ONE (06:46)
[2020-05-10 07:07] LABS: Slide Review 1 YES
[2020-05-10 08:07] VITALS: BP 102/51; PULSE 118; O2SAT 98
--- NOTE | 2020-05-10 09:22 | XRAY ---
Indication: Left flank/abdomen pain. Dysuria. Multiple contiguous axial images obtained through the abdomen and pelvis without contrast as ordered. Comparison: January 25, 2018. Lung bases are clear. Heart is not enlarged. Again previous gastric bypass surgery. Noncontrasted stomach and bowel loops appear nonobstructed. Normal appendix. New 4 cm right ovary cyst. No free fluid/air. Spleen is now enlarged measuring 14 cm in greatest dimension. Remaining liver, gallbladder, pancreas, spleen, adrenal glands, kidneys, ureters, bladder, uterus, and aorta appear unremarkable for noncontrast exam. No free fluid/air. Osseous structures intact. Impression: 1. New 4 cm right ovary cyst. Pelvic sonogram may yield further information if clinically warranted. 2. New 14 cm splenomegaly. 3. Remaining CT abdomen/pelvis without contrast exam is negative. Comment: Preliminary interpretation was made by [facility]. No critical discrepancy.
== END 2020-05-10 08:08 | disposition home or self-care (01) ==
LOC: ED 04:41
DX: N39.0 Urinary tract infection, site not specified (principal)
CPT/HCPCS: 36000; 36415; 74176; 80053; 80307; 81001; 81025; 82150; 83690; 85025; 96360; 96361; 96365; 96374; 96375; 99285; J0696; J1885; J2405; J3010

== ENCOUNTER 2021-09-03 15:35 | Emergency (ER) | payer BC ==
[2021-09-03 16:38] LABS: INR 0.95 (0.8-3.0); PROTIME 11.2 SECONDS (9.4-12.5)
--- NOTE | 2021-09-03 16:38 | ERPHSYRPT ---
- History of Present Illness Source: patient Exam Limitations: no limitations Patient Subjective Stated Complaint: PT HERE FOR ABNORMAL LABS, SHE HAS A LOW HBG, PT STATES SHE HAS BEEN MORE TRIED AND CO SOME LOWER ABD PAIN Triage Nursing Assessment: PT ALERT, WALKED IN, RESP EASY, SKIN W/D/P, ABD SOFT Physician History: 36 yo wf w h/o GI bleed in the past presents w low Hb after having routine labs per PCP yesterday. Pt denies melena/hematochezia/N/V/D/fever/significant abdominal pain. She saw her PCP yesterday for lethargy. Timing/Duration: other (Unknown duration) Severity: moderate Associated Symptoms: No nausea, No vomiting, No abdominal pain, No shortness of breath, No heartburn, No diaphoresis, No cough, No chills, No chest pain, No fever, No headaches, No loss of appetite, No malaise, No rash, No syncope, No seizure, No weakness Allergies/Adverse Reactions: No Known Drug Allergies Allergy (Verified 09/03/21 15:48) Home Medications: Cyanocobalamin 500 Mcg [Vitamin B-12 500 MCG] 1 ea DAILY 09/03/21 [History] Fluconazole 1 ea DAILY 09/03/21 [History] PANTOPRAZOLE 40 mg Tablet [Protonix 40MG Tablet] 1 ea DAILY 09/03/21 [History] Valacyclovir HCl [Valacyclovir] 500 mg DAILY 09/03/21 [History] Hx Tetanus, Diphtheria Vaccination/Date Given: Yes Hx Influenza Vaccination/Date Given: No Hx Pneumococcal Vaccination/Date Given: No Immunizations Up to Date: Yes Travel Risk - International Travel Have you traveled outside of the country in past 3 weeks: No - Coronavirus Screening Are you exhibiting any of the following symptoms?: No Close contact with a COVID-19 positive Pt in past 14-21 Days: No - Vaccine Status Have you recieved a Covid-19 vaccination: No - Review of Systems Constitutional: No Symptoms, Fatigue, Lethargy Eyes: No Symptoms Ears, Nose, & Throat: No Symptoms Respiratory: No Symptoms Cardiac: No Symptoms Abdominal/Gastrointestinal: No Symptoms Genitourinary Symptoms: No Symptoms Musculoskeletal: No Symptoms Skin: No Symptoms Neurological: No Symptoms Psychological: No Symptoms Endocrine: No Symptoms Hematologic/Lymphatic: No Symptoms Immunological/Allergic: No Symptoms - Past Medical History Pertinent Past Medical History: No Neurological History: No Pertinent History ENT History: No Pertinent History Cardiac History: No Pertinent History Respiratory History: No Pertinent History Endocrine Medical History: No Pertinent History Musculoskeletal History: No Pertinent History GI Medical History: No Pertinent History History: No Pertinent History Psycho-Social History: No Pertinent History Female Reproductive Disorders: No Pertinent History Other Medical History: HX Blood Transfusion - Past Surgical History Past Surgical History: Yes Neuro Surgical History: No Pertinent History Cardiac: No Pertinent History Respiratory: No Pertinent History Gastrointestinal: Hernia Repair Genitourinary: No Pertinent History Musculoskeletal: No Pertinent History Female Surgical History: Section Other Surgical History: GASTRIC BYPASS, - Social History Smoking Status: Never smoker Exposure to second hand smoke: No Drug Use: none Patient Lives Alone: No Significant Family History: no pertinent family hx - Female History Hx Last Menstrual Period: HYSTER Hx Now: No - Nursing Vital Signs Nursing Vital Signs: Initial Vital Signs Temperature 98.5 F 09/03/21 15:42 Pulse Rate 103 H 09/03/21 15:42 Respiratory Rate 18 09/03/21 15:42 Blood Pressure 136/91 09/03/21 15:42 O2 Sat by Pulse Oximetry 100 09/03/21 15:42 Pain Scale Pain Intensity 2 Mildly tachy - Physical Exam General Appearance: no apparent distress Eye Exam: PERRL/EOMI, eyes nml inspection Ears, Nose, Throat Exam: normal ENT inspection, TMs normal, pharynx normal, moist mucous membranes Neck Exam: normal inspection, non-tender, supple, full range of motion, No meningismus, No mass, No Brudzinski, No Kernig's Respiratory Exam: normal breath sounds, lungs clear, airway intact, No respiratory distress Cardiovascular Exam: tachycardia (Mildly), No murmur Gastrointestinal/Abdomen Exam: soft, normal bowel sounds, No tenderness Back Exam: normal inspection, normal range of motion, No CVA tenderness Extremity Exam: normal inspection, normal range of motion Neurologic Exam: alert, oriented x 3, cooperative, search advertising strategist II-XII nml as tested, normal mood/affect, nml cerebellar function, nml station & gait, sensation nml Skin Exam: normal color, warm, dry Lymphatic Exam: No adenopathy SpO2 Interpretation: normal SpO2: 100 O2 Delivery: Room Air Ordered Tests: Active Orders 24 hr Category Date Time Status Up Ad Rowena ROUTINE Activity 09/03/21 17:31 Completed Code Status Order ROUTINE Care 09/03/21 17:30 Completed IV Care Q6H Care 09/03/21 17:30 Completed Intake and Output Q12H Care 09/03/21 17:30 Completed Neuro Checks Q4H Care 09/03/21 17:[address] in Observation ROUTINE Care 09/03/21 17:30 Completed Clear Liquid Diet 09/03/21 Breakfast Completed CBC W DIFF Stat Lab 09/03/21 16:20 Completed CMP Stat Lab 09/03/21 16:20 Completed COVID AG-BINAX NOW RAPID TEST Stat Lab 09/03/21 19:10 Completed Occult Blood Stool [FECAL OCCULT BLOOD -DIAGNOSTIC] Lab 09/03/21 Ordered Stat PROTIME WITH INR Stat Lab 09/03/21 16:20 Completed PTT Stat Lab 09/03/21 16:20 Completed Transfer Order Routine Transfer 09/03/21 Ordered Medication Summary Discontinued Medications Generic Name Dose Route Start Last Admin Trade Name Freq PRN Reason Stop Dose Admin Furosemide 20 mg 09/03/21 17:45 Furosemide 20 Mg/Vial IV 10/03/21 17:44 BETWEEN UNITS GARY Sodium Chloride 1,000 mls @ 0 mls/hr 09/03/21 17:30 Sodium Chloride 0.9% 1000 Ml IV 10/03/21 17:29 .Q10H GARY KVO Lab/Rad Data: Laboratory Result Diagrams 09/03/21 16:20 09/03/21 16:20 Laboratory Results 09/03/21 09/03/21 09/03/21 Range/Units 19:10 17:49 16:20 WBC (4.0-10.5) K/mm3 RBC (4.1-5.4) M/mm3 Hgb (12.0-16.0) gm/dl Hct (35-47) % MCV (78-100) fl MCH (26-32) pg MCHC (32-36) g/dl RDW (11.5-14.0) % Plt Count (150-450) K/mm3 MPV (7.5-11.0) fl Gran % (36.0-66.0) % Eos # (Auto) (0-0.5) Absolute Lymphs (auto) (1.0-4.6) Absolute Monos (auto) (0.0-1.3) Lymphocytes % (24.0-44.0) % Monocytes % (0.0-12.0) % Eosinophils % (0.00-5.0) % Basophils % (0.0-0.4) % Absolute Granulocytes (1.4-6.9) Basophils # (0-0.4) PT 11.2 (9.4-12.5) SECONDS INR 0.95 (0.8-3.0) APTT 27.0 (25.1-36.5) SECONDS Sodium (137-145) mmol/L Potassium (3.5-5.1) mmol/L Chloride (98-107) mmol/L Carbon Dioxide (22-30) mmol/L Anion Gap (5-15) MEQ/L BUN (7-17) mg/dL Creatinine (0.52-1.04) mg/dL Estimated GFR ML/MIN Glucose (74-106) mg/dL Calcium (8.4-10.2) mg/dL Total Bilirubin (0.2-1.3) mg/dL AST (14-36) U/L ALT (0-35) U/L Alkaline Phosphatase (38-126) U/L Serum Total Protein (6.3-8.2) g/dL Albumin (3.5-5.0) g/dL Influenza Type A Ag NEGATIVE (NEGATIVE) Influenza Type B Ag NEGATIVE (NEGATIVE) RSV (PCR) NEGATIVE (Negative) SARS-CoV-2 (PCR) POSITIVE A (NEGATIVE) SARS-CoV-2 Ag (Rapid) NEGATIVE (NEGATIVE) 09/03/21 09/03/21 Range/Units 16:20 16:20 WBC 5.2 (4.0-10.5) K/mm3 RBC 3.99 L (4.1-5.4) M/mm3 Hgb 7.2 L (12.0-16.0) gm/dl Hct 26.2 L (35-47) % MCV 65.7 L (78-100) fl MCH 18.0 L (26-32) pg MCHC 27.5 L (32-36) g/dl RDW 18.5 H (11.5-14.0) % Plt Count 256 (150-450) K/mm3 MPV 10.5 (7.5-11.0) fl Gran % 58.3 (36.0-66.0) % Eos # (Auto) 0.13 (0-0.5) Absolute Lymphs (auto) 1.69 (1.0-4.6) Absolute Monos (auto) 0.33 (0.0-1.3) Lymphocytes % 32.3 (24.0-44.0) % Monocytes % 6.3 (0.0-12.0) % Eosinophils % 2.5 (0.00-5.0) % Basophils % 0.6 (0.0-0.4) % Absolute Granulocytes 3.05 (1.4-6.9) Basophils # 0.03 (0-0.4) PT (9.4-12.5) SECONDS INR (0.8-3.0) APTT (25.1-36.5) SECONDS Sodium 137 (137-145) mmol/L Potassium 3.5 (3.5-5.1) mmol/L Chloride 103 (98-107) mmol/L Carbon Dioxide 26 (22-30) mmol/L Anion Gap 12.2 (5-15) MEQ/L BUN 15 (7-17) mg/dL Creatinine 0.61 (0.52-1.04) mg/dL Estimated GFR > 60.0 ML/MIN Glucose 111 H (74-106) mg/dL Calcium 9.1 (8.4-10.2) mg/dL Total Bilirubin 0.30 (0.2-1.3) mg/dL AST 18 (14-36) U/L ALT 8 (0-35) U/L Alkaline Phosphatase 66 (38-126) U/L Serum Total Protein 7.2 (6.3-8.2) g/dL Albumin 4.2 (3.5-5.0) g/dL Influenza Type A Ag (NEGATIVE) Influenza Type B Ag (NEGATIVE) RSV (PCR) (Negative) SARS-CoV-2 (PCR) (NEGATIVE) SARS-CoV-2 Ag (Rapid) (NEGATIVE) - Progress Progress Note: 09/03/21 17:[address] Sanchez 09/03/21 20:09 Pt's PCR + for CV19 but pt asymtomatic and had CV19 in last few months. Pt's CV19 Binex test negative which was requested by [facility], but pt still required to go to CV19. Pt refused admit to CV19 unit. Outpt infusion arranged for pt tomorrow to have transfusion. Pt to be called when blood available. Pt has no active bleeding and vital signs stable. 09/03/21 20:14 09/03/21 20:55 Counseled pt/family regarding: lab results, diagnosis, need for follow-up - Departure Departure Disposition: Home Clinical Impression: Anemia Condition: Stable Critical Care Time: No Referrals: VIRGIL DE SANTIAGO MD [Primary Care Provider] - Follow up/PCP as directed Instructions: Anemia Caused by Low Iron Additional Instructions: Infusion center will call tomorrow when blood available Return to ER for active bleeding.
[2021-09-03 16:43] LABS: Absolute Neutrophil Ct (ANC) 3.05 (1.4-6.9); Basophil (Absolute #) 0.03 (0-0.4); Eosinophil % 2.5 % (0.00-5.0); Eosinophil (Absolute #) 0.13 (0-0.5); Hematocrit 26.2 % (35-47); Hemoglobin 7.2 gm/dl (12.0-16.0); Lymphocyte (Absolute #) 1.69 (1.0-4.6); Lymphocytes % 32.3 % (24.0-44.0); Mean Cell Volume 65.7 fl (78-100); Mean Corpuscular Hgb Concent. 27.5 g/dl (32-36); Mean Platelet Volume 10.5 fl (7.5-11.0); Monocyte (Absolute #) 0.33 (0.0-1.3); Monocytes % 6.3 % (0.0-12.0); Neutrophil % 58.3 % (36.0-66.0); Platelet Count 256 K/mm3 (150-450); Red Blood Count 3.99 M/mm3 (4.1-5.4); Red Cell Distribution Width 18.5 % (11.5-14.0); White Blood Count 5.2 K/mm3 (4.0-10.5)
[2021-09-03 16:44] LABS: ALBUMIN 4.2 g/dL (3.5-5.0); ALKALINE PHOSPHATASE 66 U/L (38-126); ANION GAP 12.2 MEQ/L (5-15); BLOOD UREA NITROGEN 15 mg/dL (7-17); CHLORIDE 103 mmol/L (98-107); Calcium 9.1 mg/dL (8.4-10.2); Carbon Dioxide 26 mmol/L (22-30); Creatinine 1 0.61 mg/dL (0.52-1.04); EST GLOMERULAR FILTRATION RATE > 60.0 ML/MIN; Glucose 111 mg/dL (74-106); Potassium 3.5 mmol/L (3.5-5.1); SGOT/AST 18 U/L (14-36); SGPT/ALT 8 U/L (0-35); SODIUM 137 mmol/L (137-145); Total Protein 7.2 g/dL (6.3-8.2)
[2021-09-03] MEDS ORDERED: Sodium Chloride 0.9% 1000 ML 1,000 ML IV SCH (17:30)
[2021-09-03] MEDS ORDERED: Lasix 20 MG/2 ML IV SCH (17:45)
[2021-09-03 18:27] LABS: INFLUENZA A NEGATIVE (NEGATIVE); INFLUENZA B NEGATIVE (NEGATIVE); RESPIRATORY SYNCTIAL VIRUS NEGATIVE (Negative)
[2021-09-03 18:30] LABS: SARS-CoV-2 Xpert Express POSITIVE (NEGATIVE)
[2021-09-03 19:28] LABS: COVID AG -BINAX NOW RAPID TEST NEGATIVE (NEGATIVE)
[2021-09-03 20:12] VITALS: O2SAT 100
[2021-09-03 20:17] VITALS: BP 122/80; PULSE 70
== END 2021-09-03 20:20 | disposition home or self-care (01) ==
LOC: ED 15:35
DX: D64.9 Anemia, unspecified (principal); R53.83 Other fatigue; Z79.899 Other long term (current) drug therapy
CPT/HCPCS: 0241U; 36415; 80053; 85025; 85610; 85730; 99000; 99283